=== PATIENT | male | born 1950 | race Two or more races ===

== ENCOUNTER 2017-03-14 22:04 | Emergency (ER) | payer SELFPAY ==
[~2017-03-14] VITALS: Ht 165.1 cm; Wt 83.9 kg
[~2017-03-14 22:04] MED LIST: ASPI81CH43; HYDR25TA4; METF-370; VALS160T51
[2017-03-14 22:30] VITALS: BP 152/86
[2017-03-15] MEDS ORDERED: cefTRIAXone SOD 1,000 MG VL IM ONE (03:00)
== END 2017-03-15 03:42 | disposition home or self-care (01) ==
LOC: ER 22:04
DX: S61.411A Laceration without foreign body of right hand, initial encounter (principal); E11.9 Type 2 diabetes mellitus without complications; Z79.82 Long term (current) use of aspirin; W54.0XXA Bitten by dog, initial encounter; Y93.89 Activity, other specified; Y99.8 Other external cause status; Y92.89 Other specified places as the place of occurrence of the external cause
CPT/HCPCS: 12005; 82962; 96372; 99283; J0696

== ENCOUNTER 2017-03-19 12:35 | Emergency (ER) | payer OTHER ==
[~2017-03-19] VITALS: Ht 165.1 cm; Wt 81.6 kg
[2017-03-19 12:46] VITALS: BP 134/75
== END 2017-03-19 13:54 | disposition home or self-care (01) ==
LOC: ER 12:35
DX: S61.411D Laceration without foreign body of right hand, subsequent encounter (principal); Z79.82 Long term (current) use of aspirin; W54.0XXD Bitten by dog, subsequent encounter

== ENCOUNTER 2017-03-24 09:53 | Emergency (ER) | payer OTHER ==
[~2017-03-24] VITALS: Ht 165.1 cm; Wt 83.9 kg
[2017-03-24 10:03] VITALS: BP 126/63
== END 2017-03-24 11:41 | disposition home or self-care (01) ==
LOC: ER 09:53
DX: S61.411D Laceration without foreign body of right hand, subsequent encounter (principal); Z79.82 Long term (current) use of aspirin; X58.XXXD Exposure to other specified factors, subsequent encounter; E11.9 Type 2 diabetes mellitus without complications; I10 Essential (primary) hypertension

== ENCOUNTER → 2022-08-28 | Outpatient (CLI) | payer MEDICARE ==
[~2022-08-28] MED LIST changes: +VALS160T4; -VALS160T51
[2022-08-28 08:50] LABS: Basophils # (auto) 0 10 ^3/uL (0-0.2); Basophils % (auto) 0.2 % (0.0-2.0); Eosinophils # (auto) 0.1 10 ^3/uL (0-0.8); Eosinophils % (auto) 1.2 % (0.0-7.0); Hematocrit 42.7 % (41.0-53.0); Hemoglobin 14.4 g/dL (13.5-17.5); Lymphocytes # (auto) 1.5 10 ^3/uL (0.4-5.4); Lymphocytes % (auto) 17.9 % (10.0-50.0); Mean Corpuscular Hemoglobin 32.2 pg (28.0-32.0); Mean Corpuscular Hgb Conc. 33.7 g/dL (32.0-36.0); Mean Corpuscular Volume 95.6 fL (80.0-100.0); Monocytes # (auto) 0.5 10 ^3/uL (0-1.3); Neutrophils # (auto) 6.3 10 ^3/uL (1.6-8.6); Neutrophils % (auto) 74.7 % (37.0-80.0); Red Blood Cells 4.47 10^6/uL (4.5-5.90); Red Cell Distribution Width 13.5 % (11.8-14.3); White Blood Cell 8.4 10^3/uL (4.4-10.8)
[2022-08-28 08:56] LABS: Urine Bacteria NONE SEEN /hpf (None Seen); Urine Blood TRACE /uL (Negative); Urine Specific Gravity 1.015 (1.001-1.035); Urine WBC 2 /hpf (0 - 3)
[2022-08-28 09:33] LABS: Magnesium 2.1 mg/dL (1.6-2.6)
[2022-08-28 09:41] LABS: Uric Acid 5.2 mg/dL (3.5-7.2)
[2022-08-28 11:57] LABS: Folate (Folic Acid) > 24.00 ng/mL (5.38-24)
== END | disposition home or self-care (01) ==
LOC: LAB 08:25
PROVIDERS: ATTEND Nurse Practitioner Family
DX: I10 Essential (primary) hypertension (principal); N40.0 Benign prostatic hyperplasia without lower urinary tract symptoms; E11.40 Type 2 diabetes mellitus with diabetic neuropathy, unspecified; E66.9 Obesity, unspecified; R68.89 Other general symptoms and signs; J06.9 Acute upper respiratory infection, unspecified; C43.31 Malignant melanoma of nose; E11.22 Type 2 diabetes mellitus with diabetic chronic kidney disease; I44.0 Atrioventricular block, first degree; Z68.34 Body mass index [BMI] 34.0-34.9, adult; Z79.4 Long term (current) use of insulin
CPT/HCPCS: 36415; 80061; 81001; 82607; 82746; 83036; 83735; 84443; 84550; 85025; 87086

== ENCOUNTER 2022-10-11 13:28 | Emergency (ER) | payer OTHER ==
[~2022-10-11] VITALS: Ht 165.1 cm; Wt 84.3 kg
[2022-10-11 13:44] VITALS: BP 122/66
[2022-10-11] MEDS ORDERED: TRAM50TA2 PO (15:36)
== END 2022-10-11 15:52 | disposition home or self-care (01) ==
LOC: ER 13:28
DX: M54.41 Lumbago with sciatica, right side (principal); E11.9 Type 2 diabetes mellitus without complications; I10 Essential (primary) hypertension